=== PATIENT | male | born 1990 | race Caucasian/White ===

== ENCOUNTER 2021-08-31 02:59 | Emergency (ER) | payer OTHER, BC ==
[2021-08-31] MEDS ORDERED: CEFAZOLIN SODIUM 1 GM/VIAL ONE (03:39)
[2021-08-31] MEDS ORDERED: CLINDAMYCIN 900MG/D5W 900 MG/50 ML IVPB IV ONE (03:40)
[2021-08-31] MEDS ORDERED: NA CHLORIDE 0.9% 100 ML ONE (03:40)
[2021-08-31] MEDS ORDERED: TETANUS & DIPHTHERIA TOX,ADULT 0.5 ML VIAL ONE (03:40)
[2021-08-31] MEDS ORDERED: NA CHLORIDE 0.9% 1,000 ML ONE (03:40)
--- OUTSIDE RECORDS SUMMARY | 2021-08-31 03:43 | XMS REPORT | Continuity of Care Document ---
:1990 Author Organization [facility] t Address [address] [place] [address] Dr. Joseph [address] [place] [address] Care Team Providers Name Role Phone DYLON Attending Clinician Unavailable Duglas Attending Clinician [phone] Jigna Finley Attending Clinician [phone] DELISA Attending Clinician Unavailable PAULINA_Clive Admitting Clinician Unavailable Payers Payer Name Policy Type Policy Number Effective Date Expiration Date S ource [place] [id number] 2018 00:00:00 [place] Problems This patient has no known problems. Allergies, Adverse Reactions, Alerts This patient has no known allergies or adverse reactions. Medications This patient has no known medications. Procedures This patient has no known procedures. Encounters Start End Encounter Admission Attending Care Care Encounter Source Date/Time Date/Time Type Type Clinicians Facility Department ID 2021-08-17 2021-08-17 Outpatient PAULINA_Clive [facility] [id number] [place] 02:20:00 02:20:00 [facility] 2021-08-17 2021-08-17 Outpatient Duglas [facility] [id number] 00:00:00 00:00:00 Da [id number] 2021-08-04 2021-08-04 Outpatient PAULINA_Clive [facility] [id number] [place] 03:17:00 03:17:00 [facility] 2021-08-04 2021-08-04 Outpatient Duglas [facility] [id number] 00:00:00 00:00:00 Da [id number] 2021-05-23 2021-05-23 Outpatient KEFFER_A [facility] [id number] [place] 12:20:00 12:20:00 [facility] 2021-04-18 2021-04-18 Outpatient KEFFER_A [facility] [id number] [place] 12:22:00 12:22:00 [facility] 2021-03-16 2021-03-16 Outpatient KEFFER_A [facility] [id number] [place] 09:07:00 09:07:00 630 [facility] 2021-03-14 2021-03-14 Outpatient KEFFER_A [facility] [id number] [place] 12:17:00 12:17:00 628 [facility] 2021-02-24 2021-02-24 Outpatient KEFFER_A [facility] [id number] [place] 09:21:00 09:21:00 610 [facility] 2021-02-24 2021-02-24 Outpatient Tracie Finley [facility] [id number] 00:00:00 00:00:00 Jigna [id number] 2021-02-22 2021-02-22 Outpatient PAULINA_Clive [facility] [id number] [place] 05:19:00 05:19:00 608 [facility] 2021-02-22 2021-02-22 Outpatient PaulinaTracie [facility] [id number] 00:00:00 00:00:00 Jigna [id number] 2019-11-24 2019-11-24 Outpatient SARAHFET, [facility] [id number] [address] [place] [address] 00:00:00 00:00:00 LIANET [address] 2019-11-24 2019-11-24 Outpatient EDLISA [facility] [id number] [address] [place] 00:00:00 00:00:00 LIANET [address] Results This patient has no known results.
[2021-08-31 03:51] LABS: Absolute Lymphocytes (CBC) 1.9 K/uL (0.7-4.9); Basophils % 0.2 % (0-1.3); Hematocrit 42.3 % (39.6-49.0); Lymphocytes % 8.6 % (15.3-44.8); MPV 8.2 fL (7.6-11.3); RBC Red Blood Cell Count 4.84 M/uL (4.33-5.43)
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
[2021-08-31] MEDS ORDERED: ONDANSETRON 4 MG/2 ML VIAL ONE (04:18)
[2021-08-31] MEDS ORDERED: FENTANYL CITR 100 MCG/2 ML ONE (04:18)
[2021-08-31 04:36] LABS: Albumin 4.1 g/dL (3.4-5.0); Bilirubin Direct 0.4 mg/dL (0-0.2); Bilirubin Total 1.3 mg/dL (0.2-1.0); Potassium 3.7 mmol/L (3.5-5.1); Protein, Total 7.7 g/dL (6.4-8.2)
[2021-08-31 05:01] LABS: Blood Morphology Comment NOT SEEN (NOT SEEN); Platelet Estimate ADEQ
--- NOTE | 2021-08-31 07:36 | RAD REPORT ---
EXAM DESCRIPTION: RAD - Ankle Right 3 View - 08/31/2021 3:57 am CLINICAL HISTORY: PAIN COMPARISON: No comparisons FINDINGS: There is irregularity along the medial talar process. No malalignment. No significant foca l degenerative changes. Diffuse soft tissue swelling. IMPRESSION: Fracture identified which may involve the medial process of the talus. Consider CT for b kota characterization.
[2021-08-31 08:48] VITALS: BP 115/69; TEMP 98.2; O2SAT 96
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
== END 2021-08-31 05:07 | disposition short-term general hospital (02) ==
LOC: ER 02:59
DX: S02.91XB Unspecified fracture of skull, initial encounter for open fracture (principal); S06.0X1A Concussion with loss of consciousness of 30 minutes or less, initial encounter; S92.151A Displaced avulsion fracture (chip fracture) of right talus, initial encounter for closed fracture; S32.401A Unspecified fracture of right acetabulum, initial encounter for closed fracture; F10.129 Alcohol abuse with intoxication, unspecified; V49.09XA Driver injured in collision with other motor vehicles in nontraffic accident, initial encounter; Z23 Encounter for immunization
CPT/HCPCS: 85025; 80048; 36415; 80320; 86900; 86850; 86901; 80076; 83690; 70450; 72125; 71260; 74177; 73610; 90714; Q9967; J3010; J7030; J2405; J0690